=== PATIENT | female | born 1975 ===

== ENCOUNTER 2017-07-06 08:18 | Day surgery (SDC) ==
[2017-07-06] MEDS ORDERED: LIDOCAINE 1% 2ML (SURGERY ONLY) ID ONE (09:20)
[2017-07-06] MEDS ORDERED: LIDOCAINE 1% 20 ML MDV ONE (09:20)
[2017-07-06 09:21] VITALS: TEMP 97.6
[2017-07-06] MEDS ORDERED: DIPRIVAN 20 ML VIAL IVP ONE (09:50)
[2017-07-06] MEDS ORDERED: VERSED ONE (09:50)
[2017-07-06] MEDS ORDERED: SUBLIMAZE ONE (09:50)
[2017-07-06] MEDS ORDERED: LARYNGO-JET TP ONE (09:50)
[2017-07-06] MEDS ORDERED: NEOSTIGMINE IVP ONE (09:50)
[2017-07-06] MEDS ORDERED: ROBINOL ONE (09:50)
[2017-07-06] MEDS ORDERED: ZEMURON ONE (09:50)
[2017-07-06 10:59] VITALS: BP 101/69
--- NOTE | 2017-07-06 15:47 | OP ---
PREOPERATIVE DIAGNOSIS: Left true vocal cord polyp POSTOPERATIVE DIAGNOSIS: Left true vocal cord polyp OPERATION: Incision ans biopsy of left true vocal cord polyp and direct laryngoscopy. PROCEDURE: The patient was taken to surgery, placed on the table and general anesthesia was administered. 5.5mm endotracheal tube was inserted the laryngoscope was inserted down the level of the vocal cords. Lewy martin was used to secure the laryngoscope and then 400mm lens of the Zeiss microscope was used to inspected the vocal cord which revealed a true vocal cord polyp. A small poly on the left side, using a direct laryngoscopy the left vocal cord polyp was removed with cup forceps. A small piece of poly on the right true vocal was likewise removed. The remaining part of the vocal cords appeared to be free of disease. The patient was then extubated and return back to the recovery in satisfactory condition. MONA
== END 2017-07-06 11:30 | disposition home or self-care (01) ==
LOC: SURG 08:18
PROVIDERS: ATTEND Otolaryngology
DX: J38.1 Polyp of vocal cord and larynx (principal); D14.1 Benign neoplasm of larynx; R49.0 Dysphonia; F17.200 Nicotine dependence, unspecified, uncomplicated